=== PATIENT | male | born 1985 | race Caucasian/White ===

== ENCOUNTER 2017-03-06 08:39 | Emergency (ER) | payer SELFPAY ==
[2017-03-06 08:50] VITALS: BP 152/89
--- NOTE | 2017-03-06 09:23 | EDM.PDOC ---
ED HPI GENERAL MEDICAL PROBLEM - General Chief Complaint: Lower Extremity Injury/Pain Stated Complaint: RT FT Time Seen by Provider: 03/06/17 09:00 Source of Information: Reports: Patient History Limitations: Reports: No Limitations - History of Present Illness INITIAL COMMENTS - FREE TEXT/NARRATIVE: Patient presents to ED with complaints of right ankle pain. Was up on a ladder , stepped down wrong and his ankle rolled. Patient did hear a pop when it happened. Was wearing cowboy boots at the time of incident. Has had a previous injury of his right ankle in the past. Having pain with weight bearing. Onset: Today, Sudden Duration: Hour(s): Location: Reports: Lower Extremity, Right Quality: Reports: Ache Severity: Moderate Improves with: Reports: Rest Worsens with: Reports: Movement Context: Reports: Trauma Associated Symptoms: Reports: No Other Symptoms Left Ankle Pain Score (Numeric/FACES): 5 - Related Data Allergies Allergy/AdvReac Type Severity Reaction Status Date / Time No Known Allergies Allergy Verified 03/06/17 08:50 Home Meds: Home Meds . [No Known Home Meds] 03/06/17 [History] Past Medical History - Past Health History Medical/Surgical History: Denies Medical/Surgical History - Past Surgical History HEENT Surgical History: Reports: Tonsillectomy GI Surgical History: Reports: Appendectomy Musculoskeletal Surgical History: Reports: Other (See Below) Other Musculoskeletal Surgeries/Procedures:: HAND SURGERY Social & Family History - Tobacco Use Smoking Status *Q: Current Every Day Smoker Years of Tobacco use: 20 Packs/Tins Daily: 0.1 - Caffeine Use Caffeine Use: Reports: Coffee, Energy Drinks, Soda - Alcohol Use Days Per Week of Alcohol Use: 7 Number of Drinks Per Day: 1 Total Drinks Per Week: 7 - Recreational Drug Use Recreational Drug Use: No Review of Systems - Review of Systems Review Of Systems: ROS reveals no pertinent complaints other than HPI. ED EXAM, GENERAL - Physical Exam Exam: See Below Exam Limited By: No Limitations General Appearance: Alert, WD/WN, No Apparent Distress Neck: Normal Inspection Respiratory/Chest: No Respiratory Distress, Lungs Clear, Normal Breath Sounds Cardiovascular: Regular Rate, Rhythm Extremities: Normal Inspection, Joint Swelling, Leg Pain, Limited Range of Motion (pain with flexion and extension of right ankle, tender with palpation.) Neurological: Alert, Oriented Psychiatric: Normal Affect, Normal Mood Skin Exam: Warm, Dry Course - Vital Signs Last Recorded V/S: Last Vital Signs Temp 97.2 F 03/06/17 08:44 Pulse 81 03/06/17 08:44 Resp 16 03/06/17 08:44 BP 152/89 H 03/06/17 08:44 Pulse Ox 98 03/06/17 08:44 - Orders/Labs/Meds Orders: Active Orders 24 hr Category Date Time Status Ankle Min 3V Rt [CR] Stat Exams 03/06/17 08:52 Taken Departure - Departure Time of Disposition: 09:22 Disposition: Home, Self-Care 01 Condition: Good Clinical Impression: Right ankle sprain - Discharge Information Referrals: PCP,None [Primary Care Provider] - Forms: ED Department Discharge Additional Instructions: 1. Rest 2. Ice 3. Elevate 4. Air Splint for the next couple of days for support 5. Ibuprofen for discomfort 6. Follow up in 5-7 days for evaluation if continue to have ongoing pain - My Orders Last 24 Hours: My Active Orders 03/06/17 08:52 Ankle Min 3V Rt [CR] Stat - Assessment/Plan Last 24 Hours: My Active Orders 03/06/17 08:52 Ankle Min 3V Rt [CR] Stat
== END 2017-03-06 09:30 | disposition home or self-care (01) ==
LOC: CC.ED 08:39
DX: S93.401A Sprain of unspecified ligament of right ankle, initial encounter (principal); Z98.890 Other specified postprocedural states; Z90.49 Acquired absence of other specified parts of digestive tract; F17.210 Nicotine dependence, cigarettes, uncomplicated; W11.XXXA Fall on and from ladder, initial encounter
CPT/HCPCS: 73610-RT; 99283

== ENCOUNTER 2018-05-18 15:02 | Emergency (ER) | payer SELFPAY ==
[2018-05-18] MEDS ORDERED: Acetaminophen/HYDROcodone 325-5 MG Tab PO ONE (15:03)
--- NOTE | 2018-05-18 15:14 | EDM.PDOC ---
ED HPI GENERAL MEDICAL PROBLEM - General Chief Complaint: Upper Extremity Injury/Pain Stated Complaint: L HAND PAIN Time Seen by Provider: 05/18/18 15:39 Source of Information: Reports: Patient History Limitations: Reports: No Limitations - History of Present Illness INITIAL COMMENTS - FREE TEXT/NARRATIVE: Patient c/o pain in left hand with numbness/ tingling and burning in left thumb , index and middle finger that is worse when he is standing and feels better when he is lying down. He reports the pain shoots down from his neck/ shoulder and describes it as sharp shooting pain. He denies any injury but states that his neck feels stiff at times. 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 Denies any bowel or bladder problems or any other new focal motor weakness. Onset: Gradual Onset Date: 05/12/18 Duration: Week(s): (1 week onset), Constant Location: Reports: Neck, Upper Extremity, Left Quality: Reports: Burning Severity: Moderate Improves with: Reports: None Worsens with: Reports: None Context: Reports: Activity Associated Symptoms: Reports: No Other Symptoms Left Hand Pain Score (Numeric/FACES): 9 - Related Data Allergies Allergy/AdvReac Type Severity Reaction Status Date / Time No Known Allergies Allergy Verified 05/18/18 15:10 Home Meds: Home Meds Citalopram Hydrobromide [Celexa] 40 mg PO DAILY 05/18/18 [History] busPIRone [Buspar] 10 mg PO BID 05/18/18 [History] Past Medical History - Past Health History Medical/Surgical History: Denies Medical/Surgical History - Past Surgical History HEENT Surgical History: Reports: Tonsillectomy GI Surgical History: Reports: Appendectomy Musculoskeletal Surgical History: Reports: Other (See Below) Other Musculoskeletal Surgeries/Procedures:: HAND SURGERY Social & Family History - Family History Family Medical History: Noncontributory - Caffeine Use Caffeine Use: Reports: Coffee, Energy Drinks, Soda Review of Systems - Review of Systems Review Of Systems: See Below Constitutional: Reports: No Symptoms Eyes: Reports: No Symptoms Ears: Reports: No Symptoms Nose: Reports: No Symptoms Mouth/Throat: Reports: No Symptoms Respiratory: Reports: No Symptoms Cardiovascular: Reports: No Symptoms GI/Abdominal: Reports: No Symptoms Genitourinary: Reports: No Symptoms Musculoskeletal: Reports: Neck Pain, Hand Pain, Other (burning, numbness/ tingling in left thumb, index, and middle finger that is worse with standing and sitting position and improved when lying down.) Skin: Reports: No Symptoms Neurological: Reports: Numbness, Tingling, Other (numbness/ tinglin left thumb, index, and middle finger) Psychiatric: Reports: Depression ED EXAM, GENERAL - Physical Exam Exam: See Below Exam Limited By: No Limitations General Appearance: Alert, WD/WN, No Apparent Distress Neck: Normal Inspection, Supple, Non-Tender, Full Range of Motion, Other (no tenderness or step off deformity of C-spine; no zygopophyseal tenderness; no muscle tenderness.) Peripheral Pulses: 2+: Radial (L), Radial (R) Extremities: Normal Inspection, Normal Range of Motion, Normal Capillary Refill , Other (Tinels negative bilaterally; Durken's test negative bilaterally.) Neurological: Alert, Oriented, CN II-XII Intact, Normal Cognition, Normal Gait, Other (decreased habilitation training specialist strength bilaterally, left > right. Bilateral shoulder, elbow, strength are WFL's. Wrist extension/ flexion 4/5 bilaterally. Sensation grossly intact in bilateral UE's/ hands.) Skin Exam: Warm, Dry, Intact, Normal Color Course - Vital Signs Text/Narrative:: Decreased pain after Toradol injection from 04/01 to 10/30. Last Recorded V/S: Last Vital Signs Temp 36.3 C 05/18/18 15:03 Pulse 104 H 05/18/18 15:03 Resp 18 05/18/18 15:03 BP 122/81 05/18/18 16:24 Pulse Ox 98 05/18/18 15:03 - Orders/Labs/Meds Orders: Active Orders 24 hr Category Date Time Status Cervical Spine Min 4V [CR] Stat Exams 05/18/18 15:37 Taken Hand Comp Min 3V Lt [CR] Stat Exams 05/18/18 15:38 Taken Labs: Laboratory Tests 05/18/18 05/18/18 Range/Units 16:15 16:15 ESR 3 (0-15) mm/hr C-Reactive Protein < 0.2 L (0.2-0.8) mg/dL Meds: Medications Discontinued Medications Generic Name Dose Route Start Last Admin Trade Name Freq PRN Reason Stop Dose Admin Ketorolac Tromethamine 30 mg 05/18/18 15:36 05/18/18 15:44 Toradol IM 05/18/18 15:37 30 mg ONETIME ONE Administration - Radiology Interpretation Free Text/Narrative:: Left hand xray negative for acute fracture. Cervical spine xray indicates no fracture, vertebral bodies are normal height, alignment, and interspacing. No abnormal motion. Departure - Departure Time of Disposition: 17:23 Disposition: Home, Self-Care 01 Condition: Good Clinical Impression: Neck pain, Hand pain, left, Hand paresthesia - Discharge Information *PRESCRIPTION DRUG MONITORING PROGRAM REVIEWED*: Not Applicable *COPY OF PRESCRIPTION DRUG MONITORING REPORT IN PATIENT TAYLOR: Not Applicable Instructions: Paresthesia, Radicular Pain, Paresthesia, [id number], Carpal Tunnel Syndrome Referrals: Esha Montoya PA-C [Primary Care Provider] - Forms: ED Department Discharge Additional Instructions: Take Aleve as directed. Follow up in clinic on Sunday, will need further workup with MRI of cervical spine and EMG testing. Return to ED for worsening symptoms. - Problem List Review Problem List Initiated/Reviewed/Updated: Yes - My Orders Last 24 Hours: My Active Orders 05/18/18 15:37 Cervical Spine Min 4V [CR] Stat 05/18/18 15:38 Hand Comp Min 3V Lt [CR] Stat - Assessment/Plan Last 24 Hours: My Active Orders 05/18/18 15:37 Cervical Spine Min 4V [CR] Stat 05/18/18 15:38 Hand Comp Min 3V Lt [CR] Stat Assessment:: Neck pain with left hand pain/ parathesias. Patient will need cervical MRI for further assessment and EMG testing. R/O cervical radiculapathy versus Carpal tunnel syndrome. Bilateral hand weakness. Labs and xrays negative. Plan: Neck pain and left hand pain Follow up in clinic this week, may need cervical MRI or EMG testing for further evaluation. Advised to take Aleve for pain as directed.
[2018-05-18] MEDS ORDERED: Ketorolac 30 MG/ML SDV IM ONE (15:36)
[2018-05-18 16:25] VITALS: BP 122/81
[2018-05-18] MEDS ORDERED: Take Home: Acetaminophen/HYDROcodone 325-5 MG, 2 Tab Pack PO ONE (17:31)
== END 2018-05-18 17:45 | disposition home or self-care (01) ==
LOC: CC.ED 15:02
DX: M79.642 Pain in left hand (principal); M54.2 Cervicalgia; R20.2 Paresthesia of skin; M62.81 Muscle weakness (generalized); Z79.899 Other long term (current) drug therapy
CPT/HCPCS: 36415; 72050; 73130; 85651; 86140; 96372; 99283; A9270; J1885